=== PATIENT | male | born 1980 | race Caucasian/White ===

== ENCOUNTER 2022-07-18 18:14 | Inpatient (IN) | payer MEDICAID ==
[~2022-07-18] VITALS: Ht 174 cm; Wt 85.7 kg
[2022-07-18 18:22] VITALS: BP 136/84
--- NOTE | 2022-07-18 19:46 | NUR ---
Kiah gary in [facility] - 07/18/22 at 2003 by YENNIFER Patient returned back from CT scan.
--- NOTE | 2022-07-18 20:03 | NUR ---
Blood for labwork drawn by supervisor publications production. Patient tolerated well.
[2022-07-18 20:15] LABS: BASOPHILS % (AUTO) 0.6 % (0.0-2.0); EOSINOPHILS # (AUTO) 0.1 K/uL (0-0.4); EOSINOPHILS % (AUTO) 2.7 % (0.0-4.0); HEMATOCRIT 43.7 % (36-52); HEMOGLOBIN 14.9 g/dL (12.0-18.0); LYMPHOCYTES # (AUTO) 1.8 K/uL (2.0-11.5); LYMPHOCYTES % (AUTO) 37.4 % (20.5-51.1); MEAN CORPUSCULAR HEMOGLOBIN 30 pg (27-31); MEAN CORPUSCULAR HGB CONC 34 g/dL (33-37); MEAN CORPUSCULAR VOLUME 88.6 fL (80-94); MONOCYTES # (AUTO) 0.8 K/uL (0.8-1.0); MONOCYTES % (AUTO) 17.7 % (1.7-9.3); NEUTROPHILS % (AUTO) 41.6 % (42.2-75.2); PLATELET COUNT (AUTO) 202 K/uL (140-450); RED BLOOD CELL COUNT(AUTO) 4.94 MIL/uL (4.20-6.10); WHITE BLOOD COUNT (AUTO) 4.7 K/uL (4.8-10.8)
[2022-07-18 20:31] LABS: ALBUMIN 3.9 g/dL (3.4-5.0); ANION GAP 7.8 (8-16); CARBON DIOXIDE 28.8 mmol/L (21-32); CREATININE 0.9 mg/dL (0.6-1.3); POTASSIUM 3.6 mmol/L (3.5-5.1); TOTAL BILIRUBIN 0.4 mg/dL (0.0-1.0)
--- NOTE | 2022-07-18 20:42 | NUR ---
PT AMBULATED TO BED 11 WITH A STEADY GAIT
[2022-07-18] MEDS ORDERED: MORPHINE SULFATE 4 MG/ML SYR IVP PRN (23:40)
[2022-07-18] MEDS ORDERED: MORPHINE SULFATE 2 MG/ML SYR IVP PRN (23:40)
[2022-07-19] MEDS: NACL 0.9% 1,000 ML IV SCH ×3 (00:17→19:40)
--- NOTE | 2022-07-19 02:03 | NUR ---
Pt noted resting comfortably at this time, noted with rise and fall of chest. no s/s pain or discomfort.
[2022-07-19] MEDS ORDERED: PIPERACILLIN/TAZOBACTAM 3.375 GM VIAL IV ONE (05:07)
[2022-07-19] MEDS: PIPERACILLIN/TAZOBACTAM 3.375 GM in DEXTROSE 5% 50 ML IV SCH ×3 (05:17→20:22)
[2022-07-19 06:35] LABS: BASOPHILS % (AUTO) 0.5 % (0.0-2.0); EOSINOPHILS # (AUTO) 0.2 K/uL (0-0.4); EOSINOPHILS % (AUTO) 2.7 % (0.0-4.0); HEMATOCRIT 41.5 % (36-52); HEMOGLOBIN 14.6 g/dL (12.0-18.0); LYMPHOCYTES # (AUTO) 1.8 K/uL (2.0-11.5); LYMPHOCYTES % (AUTO) 30.3 % (20.5-51.1); MEAN CORPUSCULAR HEMOGLOBIN 31 pg (27-31); MEAN CORPUSCULAR HGB CONC 35 g/dL (33-37); MEAN CORPUSCULAR VOLUME 87.1 fL (80-94); MONOCYTES % (AUTO) 17.3 % (1.7-9.3); NEUTROPHILS # (AUTO) 2.8 K/uL (1.8-7.7); NEUTROPHILS % (AUTO) 49.2 % (42.2-75.2); PLATELET COUNT (AUTO) 208 K/uL (140-450); RED BLOOD CELL COUNT(AUTO) 4.76 MIL/uL (4.20-6.10); RED CELL DISTRIBUTION WIDTH 13.9 % (11.6-13.7); WHITE BLOOD COUNT (AUTO) 5.8 K/uL (4.8-10.8)
--- NOTE | 2022-07-19 07:04 | NUR ---
Pt resting comfortably at this time, rise and fall of chest noted. no s/s pain or discomfort.
--- NOTE | 2022-07-19 07:26 | NUR ---
Report given Jenny RN for transfer of care.
--- NOTE | 2022-07-19 07:30 | NUR ---
REPORT FR TRIVEDI , ALL QUESTIONS WERE ANSWRED. PT DENIES PAIN .UPDATED HIM WITH PLAN OF CARE, VERB GOOD UNDERSTANDING
[2022-07-19 07:37] LABS: ANION GAP 9.6 (8-16); CARBON DIOXIDE 29.4 mmol/L (21-32); CREATININE 0.8 mg/dL (0.6-1.3)
--- NOTE | 2022-07-19 09:23 | NUR ---
PATIENT HAS BEEN SCREENED AND CATEGORIZED LOW NUTRITION RISK. PATIENT WILL BE SEEN WITHIN 7 DAYS OF ADMISSION. 07/25/22 REVIEWED BY CORY SUNG RD
[2022-07-19 12:00] VITALS: BP 110/78
--- NOTE | 2022-07-19 12:01 | NUR ---
DC [age]ANN[age] YRS OLD MALE PATIENT WAS ADMITTED FROM HOME WITH A DX OF ACUTE APPENDICITIS. PATIENT HAS NO MEDICAL HISTORY. CT ABD SHOWED ACUTE APPENDICITIS. ADMINISTERED IVF, IV ABX ZOSYN. CONSULTED WITH SURGEON DR HANSEN PLAN FOR LAP APPY. DC PLAN TO GO HOME WHEN STABLE. CM TO FOLLOW.
[2022-07-19] MEDS ORDERED: ONDANSETRON 4 MG/2 ML VIAL IVP PRN (13:30)
[2022-07-19] MEDS ORDERED: MAG SULF 2000 MG/WATER PREMIX 50 ML IV PRN (13:30)
[2022-07-19] MEDS ORDERED: POTASSIUM CHLORIDE 10 MEQ TABER PO PRN (13:30)
[2022-07-19] MEDS ORDERED: ACETAMINOPHEN 325 MG TAB PO PRN (13:30)
[2022-07-19] MEDS ORDERED: NACL 0.9% 1,000 ML IV SCH (13:30)
[2022-07-19] MEDS ORDERED: HYDROcodone/APAP 7.5/325 MG 1 TAB PO PRN (13:30)
[2022-07-19 14:46] LABS: PROTHROMBIN TIME 12.1 secs (10.8-13.4)
--- NOTE | 2022-07-19 14:47 | NUR ---
PT. OFF THE FLOOR GOING TO [facility]
--- NOTE | 2022-07-19 15:00 | NUR ---
PT. BACK ON THE FLOOR, PER PRE[facility] RNS SURGEON HAS NOT YET ARRIVED
[2022-07-19 15:13] LABS: AMYLASE 56 U/L (25-115); CHOL/HDL RATIO 6.4 (1-4.5); FREE T4 (FREE THYROXINE) 1.16 ng/dL (0.76-1.46); HDL CHOLESTEROL 34 mg/dL (40-60); LDL (CALC) 150 mg/dL (60-100); LIPASE 110 U/L (73-393); MAGNESIUM 1.9 mg/dL (1.8-2.4); PHOSPHORUS 2.9 mg/dL (2.5-4.9); THYROID STIMULATING HORMONE 0.81 uIU/mL (0.34-3.74); TRIGLYCERIDES 177 mg/dL (30-150)
[2022-07-19 16:00] VITALS: BP 115/77
[2022-07-19 16:49] LABS: BILIRUBIN,URINE NEGATIVE (NEGATIVE); BLOOD, URINE NEGATIVE (NEGATIVE); LEUKOCYTE ESTERASE ,URINE NEGATIVE (NEGATIVE); NITRITE, URINE NEGATIVE (NEGATIVE); PH,URINE 7.5 (5.0-9.0); UGLUCOSE NEGATIVE (NEGATIVE)
[2022-07-19 16:52] LABS: APPEARANCE,URINE CLEAR (CLEAR); COLOR,URINE YELLOW (YELLOW)
[2022-07-19 17:49] LABS: BARBITURATE, URINE NEGATIVE ng/ml (NEG <=200); BENZODIAZEPINE, URINE NEGATIVE ng/mL (NEG <=200); CANNABINOID, URINE NEGATIVE ng/mL (NEG <=50); COCAINE, URINE NEGATIVE ng/mL (NEG <=300); OPIATE, URINE NEGATIVE ng/mL (NEG <=2000); PHENCYCLIDINE SCREEN,URINE NEGATIVE ng/mL (NEG <=25)
--- NOTE | 2022-07-19 18:28 | NUR ---
DR. HANSEN AT BEDSIDE DISCUSSED SURGERY TO PATIENT, STATES THAT WE ARE WAITING FOR ANESTHESIOLOGIST TO ARRIVE
[2022-07-19 20:00] VITALS: BP 114/76
--- NOTE | 2022-07-19 20:00 | NUR ---
RECEIVED PT FROM DAY NURSE FOR CONTINUITY OF CARE. PT IS STABLE. PT AWAKE ,ALERT AND ORIENTED X4, ON ROOM AIR.FAMILY AT BEDSIDE. NO COMPLAINS OF PAIN.NO S/SX OF DISTRESS.POC DISCUSSED. ALL PRECAUTIONS IN PLACE. CALL LIGHT WITHIN REACH. WILL CONTINUE TO MONITOR.
[2022-07-19] MEDS: DOCUSATE SODIUM 100 MG GELCAP PO SCH (20:22)
--- NOTE | 2022-07-19 20:30 | NUR ---
SCHEDULED MEDICATION GIVEN. PT TOLERATED WELL. WILL CONTINUE TO MONITOR.
--- NOTE | 2022-07-19 22:00 | NUR ---
GOT A CALL FROM AND WAS TOLD THAT PATIENT CAN EAT FOR NOW AND PUT PATIENT ON NPO AFTER MIDNIGHT.
[2022-07-20 04:00] VITALS: BP 115/61
[2022-07-20] MEDS: PIPERACILLIN/TAZOBACTAM 3.375 GM in DEXTROSE 5% 50 ML IV SCH ×3 (05:02→21:38)
[2022-07-20] MEDS: NACL 0.9% 1,000 ML IV SCH ×2 (05:40→15:43)
--- NOTE | 2022-07-20 06:29 | NUR ---
PT IS STABLE. NO ACUTE EVENT THROUGHOUT THE NIGHT. NO S/SX OF DISTRESS AT THIS MOMENT. NO COMPLAINS OF PAIN. ALL NEEDS MET.ALL PRECAUTIONS IN PLACE. CALL LIGHT WITHIN REACH. WILL ENDORSE TO DAY SHIFT NURSE.
[2022-07-20 07:06] LABS: BASOPHILS % (AUTO) 0.5 % (0.0-2.0); EOSINOPHILS # (AUTO) 0.2 K/uL (0-0.4); EOSINOPHILS % (AUTO) 3.3 % (0.0-4.0); HEMATOCRIT 41.1 % (36-52); HEMOGLOBIN 14.2 g/dL (12.0-18.0); LYMPHOCYTES # (AUTO) 1.8 K/uL (2.0-11.5); LYMPHOCYTES % (AUTO) 31.8 % (20.5-51.1); MEAN CORPUSCULAR HEMOGLOBIN 30 pg (27-31); MEAN CORPUSCULAR HGB CONC 35 g/dL (33-37); MEAN CORPUSCULAR VOLUME 87.8 fL (80-94); MONOCYTES # (AUTO) 0.8 K/uL (0.8-1.0); MONOCYTES % (AUTO) 13.8 % (1.7-9.3); NEUTROPHILS # (AUTO) 2.9 K/uL (1.8-7.7); NEUTROPHILS % (AUTO) 50.6 % (42.2-75.2); PLATELET COUNT (AUTO) 237 K/uL (140-450); RED BLOOD CELL COUNT(AUTO) 4.68 MIL/uL (4.20-6.10); RED CELL DISTRIBUTION WIDTH 13.8 % (11.6-13.7); WHITE BLOOD COUNT (AUTO) 5.6 K/uL (4.8-10.8)
[2022-07-20 07:10] LABS: MAGNESIUM 2.2 mg/dL (1.8-2.4); PHOSPHORUS 3.5 mg/dL (2.5-4.9)
[2022-07-20 07:12] LABS: ANION GAP 10.5 (8-16); CARBON DIOXIDE 27.1 mmol/L (21-32); CREATININE 0.9 mg/dL (0.6-1.3); POTASSIUM 3.6 mmol/L (3.5-5.1)
--- NOTE | 2022-07-20 07:15 | NUR ---
RECEIVED REPORT FROM OPERATIONS CONTROLLER NURSE, VU, FOR CONTINUITY OF CARE. PT IN BED ON HIS PHONE AT THIS TIME. RESPIRATIONS ARE EVEN AND UNLABORED ON ROOM AIR. NO SIGNS OF DISTRESS NOTED. PT IS ALERT AND ORIENTED X4, ETHIOPIAN SPEAKING. ABLE TO VERBALIZE NEEDS, ABLE TO FOLLOW COMMANDS. PT IS NPO AT THIS TIME FOR SCHEDULED PROCEDURE. ABD IS SOFT, PT COMPLAINING OF RLQ TENDERNESS. PT LAST BOWEL MOVEMENT WAS THIS MORNING. PT IS CONTINENT OF BOWEL AND BLADDER. SKIN IS WARM, DRY, AND INTACT. CALL LIGHT WITHIN REACH. ALL SAFETY MEASURES IN PLACE.
[2022-07-20 08:00] VITALS: BP 104/68
--- NOTE | 2022-07-20 08:00 | NUR ---
Patient's Plan of Care was discussed and reviewed with DRAIN TILE MACHINE OPERATOR:
--- NOTE | 2022-07-20 09:40 | NUR ---
MEDICATION HEPARIN NOT ADMINISTERED, PT SCHEDULED FOR SURGERY LATER TODAY.
[2022-07-20] MEDS: DOCUSATE SODIUM 100 MG GELCAP PO SCH ×2 (09:41→20:55)
[2022-07-20] MEDS: PANTOPRAZOLE 40 MG INJ VIAL IVP SCH (09:46)
--- NOTE | 2022-07-20 09:53 | NUR ---
OR STAFF ON UNIT TO DECISION SCIENCE ANALYST PT FOR SCHEDULED PROCEDURE.
[2022-07-20] MEDS ORDERED: BUPIVACAINE-MPF/EPI 0.25% 30 ML VIAL INJ ONE (10:36)
[2022-07-20] MEDS ORDERED: LIDOCAINE 1% 500 MG/50 ML VIAL ONE (12:27)
[2022-07-20] MEDS ORDERED: PROPOFOL 200 MG/20 ML VIAL IV ONE (12:29)
[2022-07-20] MEDS ORDERED: fentaNYL citrate 0.05 MG/ML VIAL ONE (12:29)
[2022-07-20] MEDS ORDERED: SUCCINYLCHOLINE CHLORIDE 200 MG/10 ML VIAL IVP ONE (12:29)
[2022-07-20] MEDS ORDERED: SEVOFLURANE 250 ML BTL INH ONE (12:35)
[2022-07-20] MEDS ORDERED: ONDANSETRON 4 MG/2 ML VIAL ONE (12:42)
[2022-07-20] MEDS ORDERED: ROCURONIUM 50 MG/5 ML VIAL IV ONE (12:42)
[2022-07-20] MEDS ORDERED: DEXAMETHASONE 4 MG/ML VIAL ONE (12:43)
[2022-07-20] MEDS ORDERED: SUGAMMADEX SODIUM 200 MG/2 ML VIAL IV ONE (13:21)
[2022-07-20] MEDS ORDERED: MEPERIDINE 25 MG/ML SYR ONE (13:27)
[2022-07-20] MEDS ORDERED: ONDANSETRON 4 MG/2 ML VIAL IVP PRN (13:40)
[2022-07-20] MEDS: LACTATED RINGERS 1,000 ML IV SCH ×2 (13:40→21:02)
[2022-07-20] MEDS ORDERED: diphenhydrAMINE 50 MG/ML VIAL IVP PRN (13:40)
[2022-07-20] MEDS ORDERED: MEPERIDINE 25 MG/ML SYR IVP PRN (13:40)
[2022-07-20] MEDS ORDERED: HYDROmorphone PFS 2 MG/ML SYR ONE (14:11)
[2022-07-20] MEDS: HYDROmorphone 1 MG/ML AMP IVP PRN ×2 (14:13→14:23)
--- NOTE | 2022-07-20 14:35 | NUR ---
PT RETURNED FROM SURGERY. VS 123/79, 71, 16, 97.4, 98% ON ROOM AIR. NO SIGNS OF DISTRESS NOTED. PT HAS 3 SMALL INCISIONS TO ABD WITH DERMABOND.
[2022-07-20 16:00] VITALS: BP 115/78
[2022-07-20] MEDS ORDERED: TRAM50TA3 PO (16:25)
--- NOTE | 2022-07-20 16:45 | NUR ---
DID ROUNDS ON PT. FAMILY AT BEDSIDE. PT SLEEPING AT THIS TIME. RESPIRATIONS ARE EVEN AND UNLABORED. NO SIGNS OF PAIN OR DISCOMFORT.
--- NOTE | 2022-07-20 17:15 | NUR ---
DISCHARGE ORDER IN PLACE, PER DR EVANS, OK TO DISCHARGE IF CLEARED BY SURGERY. DR HANSEN MADE AWARE. PER DR HANSEN, NO DISCHARGE AT THIS TIME.
--- NOTE | 2022-07-20 19:20 | NUR ---
ENDORSED PT TO NURSE EPIDEMIOLOGIST NURSE, FRANNY, FOR CONTINUITY OF CARE. PT IS STABLE.
--- NOTE | 2022-07-20 22:51 | NUR ---
RECEIVED REPORT FROM DAY SHIFT NURSE FOR CONTINUITY OF CARE. PT IS AWAKE, ALERT AND ORIENTED X4, AMERICAN SPEAKING, CONTINENT, AND AMBULATORY. CURRENTLY ON ROOM AIR WITH NO SIGNS OF ACUTE DISTRESS NOTED. OVERALL SKIN IS INTACT, PT HAS IV SITE LOCATED AT RIGHT AC, 20 GAUGE, INTACT AND PATENT. PT IS POST LAP APPENDECTOMY. ENCOURAGED TO AMBULATE FREQUENTLY TO HELP PASS GAS/REDUCE PAIN. Addendum: 07/20/22 at 2257 by Major Zuniga LVN LVN @ 1930
--- NOTE | 2022-07-20 22:52 | NUR ---
Patient's Plan of Care was discussed and reviewed with THAD: FRANNY
--- NOTE | 2022-07-20 22:56 | NUR ---
SCHEDULED MEDICATIONS ADMINISTERED WITH NO COMPLICATIONS. PT AMBULATED AROUND BEDROOM. WILL CONTINUE MONITORING THE PT.
[2022-07-21] VITALS: BP 126/75
--- NOTE | 2022-07-21 00:49 | NUR ---
PT REPORTS A PAIN LEVEL OF 4/10. ADMINISTERED NORCO PRN PER MD ORDER. PT TOLERATED WELL, NO OTHER SIGNS OF DISTRESS NOTED, WILL CONTINUE TO MONITOR.
[2022-07-21] MEDS: NACL 0.9% 1,000 ML IV SCH ×2 (01:40→11:40)
[2022-07-21 04:00] VITALS: BP 107/69
[2022-07-21] MEDS: PIPERACILLIN/TAZOBACTAM 3.375 GM in DEXTROSE 5% 50 ML IV SCH ×2 (04:29→13:00)
--- NOTE | 2022-07-21 04:58 | NUR ---
PT SLEPT WELL THROUGHOUT SHIFT. AMBULATED AROUND BEDROOM FREQUENTLY. REPORTS PASSING GAS BUT NO BOWL MOVEMENT'S. PT VOIDED TWICE DURING SHIFT.
[2022-07-21] MEDS: LACTATED RINGERS 1,000 ML IV SCH (05:49)
--- NOTE | 2022-07-21 05:49 | NUR ---
NON ADMINISTERED LACTATED RINGER DUE TO ZOSYN ANTIBIOTIC INFUSING.
[2022-07-21 06:53] LABS: ANION GAP 10.5 (8-16); CREATININE 0.8 mg/dL (0.6-1.3); POTASSIUM 3.5 mmol/L (3.5-5.1)
[2022-07-21 06:55] LABS: BASOPHILS % (AUTO) 0.2 % (0.0-2.0); EOSINOPHILS % (AUTO) 0.1 % (0.0-4.0); HEMATOCRIT 39.7 % (36-52); HEMOGLOBIN 13.8 g/dL (12.0-18.0); LYMPHOCYTES # (AUTO) 1.7 K/uL (2.0-11.5); LYMPHOCYTES % (AUTO) 20.2 % (20.5-51.1); MAGNESIUM 1.9 mg/dL (1.8-2.4); MEAN CORPUSCULAR HEMOGLOBIN 30 pg (27-31); MEAN CORPUSCULAR HGB CONC 35 g/dL (33-37); MEAN CORPUSCULAR VOLUME 87.3 fL (80-94); MONOCYTES # (AUTO) 0.9 K/uL (0.8-1.0); MONOCYTES % (AUTO) 10.3 % (1.7-9.3); NEUTROPHILS # (AUTO) 5.7 K/uL (1.8-7.7); NEUTROPHILS % (AUTO) 69.2 % (42.2-75.2); PLATELET COUNT (AUTO) 251 K/uL (140-450); RED BLOOD CELL COUNT(AUTO) 4.55 MIL/uL (4.20-6.10); RED CELL DISTRIBUTION WIDTH 13.4 % (11.6-13.7); WHITE BLOOD COUNT (AUTO) 8.3 K/uL (4.8-10.8)
--- NOTE | 2022-07-21 07:05 | NUR ---
BEDSIDE REPORT RECEIVED FROM TELECOMMUNICATIONS CABLE JOINTER FOR CONTINUITY OF CARE. INITIAL ASSESSMENT DONE. ALERT AND ORIENTED X 4. RESP. EVEN AND UNLABORED. IVF INFUSING WELL. NO C/O PAIN OR DISCOMFORT. CALL LIGHT KEPT WITHIN REACH. WILL CONTINUE TO MONITOR.
[2022-07-21 08:00] VITALS: BP 105/67
[2022-07-21] MEDS: PANTOPRAZOLE 40 MG INJ VIAL IVP SCH (09:00)
[2022-07-21] MEDS: DOCUSATE SODIUM 100 MG GELCAP PO SCH (09:15)
--- NOTE | 2022-07-21 10:36 | NUR ---
PROTONIX IVP WAS GIVEN BY GRACE VINCENT. TOLERATED WELL.
--- NOTE | 2022-07-21 13:46 | NUR ---
ZOSYN IV NOT GIVEN, PT EMA DISCHARGE TO HOME.
--- NOTE | 2022-07-21 15:15 | NUR ---
PT LEFT. DISCHARGE TO HOME. TRANSPORTED BY PRIVATE CAR, AMBULATORY. ACCOMPANIED BY HIS . ALERT AND ORIENTED X 4. RESP. EVEN AND UNLABORED. WITH SKIN CONDITIONS: INCISIONS TO ABDOMEN. NO REDNESS, NO BLEEDING NOTED. DISCHARGED PAPERWORKS, SIGNED AND DISCUSS BY PT. ID BAND AND IV REMOVED. NO C/O PAIN OR DISCOMFORT. REMAINS STABLE.
== END 2022-07-21 15:13 | disposition home or self-care (01) | DRG 234 ==
LOC: MED 18:14 → MTU 23:44 → MMU 23:44 → MTU 07-19 05:07
PROC: 0DTJ4ZZ Resection of Appendix, Percutaneous Endoscopic Approach (ICD-10-PCS; principal; 2022-07-20 10:00)
DX: K35.80 Unspecified acute appendicitis (principal); E83.51 Hypocalcemia; E78.5 Hyperlipidemia, unspecified; K80.20 Calculus of gallbladder without cholecystitis without obstruction; R74.01 Elevation of levels of liver transaminase levels; Z20.822 Contact with and (suspected) exposure to COVID-19
CPT/HCPCS: 36415; 71045; 80048; 80053; 80305; 81003; 82140; 82150; 83036; 83605; 83690; 83735; 83880; 84100; 84439; 84443; 84484; 85025; 85610; 85730; 86140; 87081; 87086; 88304; 96365; 99285; C9113; J0330; J0694; J1100; J1170; J1644; J2001; J2175; J2405; J2543; J2704; J3010; J3490; J7060; J7120; Q0092

== ENCOUNTER 2023-04-16 22:22 | Emergency (ER) | payer MEDICAID, OTHER ==
[~2023-04-16] VITALS: Ht 165.1 cm; Wt 83.5 kg
[~2023-04-16 22:22] MED LIST: TRAM50TA3 PO
[2023-04-16 22:47] VITALS: BP 123/79; PULSE 68; RESP 16; TEMP 98.6; O2SAT 99
[2023-04-16 22:50] VITALS: BP 123/79; PULSE 68; RESP 16; TEMP 98.6; O2SAT 99
[2023-04-17] MEDS ORDERED: FLUORESCEIN OPTH STRIP 1 MG ONE (00:18)
[2023-04-17] MEDS ORDERED: OFLOS RIGHT EYE (00:49)
== END 2023-04-17 00:50 | disposition home or self-care (01) ==
LOC: MED 22:22
DX: S05.11XA Contusion of eyeball and orbital tissues, right eye, initial encounter (principal); X58.XXXA Exposure to other specified factors, initial encounter; Y93.89 Activity, other specified; Y92.89 Other specified places as the place of occurrence of the external cause; Y99.8 Other external cause status
CPT/HCPCS: 99282

== ENCOUNTER 2023-10-05 13:43 | Emergency (ER) | payer SELFPAY ==
[~2023-10-05] VITALS: Ht 165.1 cm; Wt 81.6 kg
[~2023-10-05 13:43] MED LIST changes: +OFLOS RIGHT EYE
[2023-10-05 14:14] VITALS: BP 125/85; PULSE 66; RESP 16; TEMP 98; O2SAT 98
[2023-10-05] MEDS ORDERED: [UNRECOGNIZED DRUG - CODE] TP (15:20)
[2023-10-05] MEDS ORDERED: METH-1681 PO (15:20)
[2023-10-05 15:32] VITALS: BP 122/82; PULSE 66; RESP 12; TEMP 98; O2SAT 99
== END 2023-10-05 15:32 | disposition home or self-care (01) ==
LOC: MED 13:43
DX: M54.50 Low back pain, unspecified (principal); R03.0 Elevated blood-pressure reading, without diagnosis of hypertension; Z79.1 Long term (current) use of non-steroidal anti-inflammatories (NSAID); Z79.899 Other long term (current) drug therapy
CPT/HCPCS: 99283